=== PATIENT | female | born 1965 | race Caucasian/White ===

== ENCOUNTER 2017-05-01 12:47 | Inpatient (IN) ==
--- NOTE | 2017-05-01 13:18 | Emergency Department Note ---
Disposition Clinical Impression: Depression, Acute anxiety Disposition: Admitted As Inpatient Condition: Good Psych HPI - General Chief Complaint: ED Psychiatric Symptoms Stated Complaint: depression Time Seen by Provider: 05/01/17 12:57 Source: patient Mode of arrival: ambulatory Limitations: no limitations Nursing Notes Reviewed: Yes Vital Signs Reviewed: Yes - History of Present Illness HPI Narrative: Patient is a 51 y/o woman with a long-standing history of depression, anxiety, insomnia, and PTSD since her early 20's. She reports to the ED today because she feels "hopeless and lost, and does not know what else to do". She states that her current medications have been changed numerous times in the last two years and abruptly stopped taking all medications one year ago that resulted in a voluntary psychiatric hospitalization. Today she is tearful and visibly upset at her current situation. She is single and does not have any children. When asked, she did not admit to any other medical diagnoses or health problems. She does not currently have suicidal or homicidal ideation, has never had suicidal or homicidal ideation in the past, and has never had any attempts. She is currently taking her medications as prescribed and is seeing a psychiatrist for medical management. When asked about hospitalization, she seemed concerned with the social stigma and "what people would think". - Related Data Home Medications Medication Instructions Recorded Confirmed Estradiol [Estrace] 1 mg PO DAILY #0 09/17/15 05/01/17 Polyethylene Glycol 3350 [MiraLAX] 34 gm PO HS 09/22/15 05/01/17 ALPRAZolam [Xanax 1 MG Tablet] 1 mg PO DAILY PRN 05/01/17 05/01/17 Desvenlafaxine Succinate [Pristiq 50 mg PO QAM 05/01/17 05/01/17 ER] Eszopiclone [Lunesta] 3 mg PO HS 05/01/17 05/01/17 Ibuprofen [Ibuprofen] 800 mg PO Q8H PRN 05/01/17 05/01/17 Lubiprostone [Amitiza] 24 mcg PO BID 05/01/17 05/01/17 Progesterone,Micronized 100 mg PO DAILY 05/01/17 05/01/17 [Progesterone] Quetiapine Fumarate [Seroquel] 400 mg PO HS 05/01/17 05/01/17 Allergies Allergy/AdvReac Type Severity Reaction Status Date / Time indomethacin AdvReac Nausea Verified 05/01/17 12:54 Review of Systems: CONSTITUTIONAL: No weight loss, fever, chills, weakness or fatigue. HEENT: Eyes: No visual changes. Ears, Nose, Throat: No hearing loss, difficulty talking or unable to swallow. SKIN: No rash or itching. CARDIOVASCULAR: No chest pain, chest pressure or chest discomfort. No palpitations or edema. RESPIRATORY: No shortness of breath, cough or sputum. GASTROINTESTINAL: No anorexia, nausea, vomiting or diarrhea. No abdominal pain or blood. GENITOURINARY: No burning on urination or hematuria. NEUROLOGICAL: No headache, dizziness, syncope, paralysis, ataxia, numbness or tingling in the extremities. No change in bowel or bladder control. MUSCULOSKELETAL: No muscle pain, back pain, joint pain or stiffness. Psych: Depression All systems ED: reviewed and negative except as stated. Past Medical History - Past Medical History Medical history: Reports: kidney stones Surgical history: Reports: other Psychiatric history: Reports: anxiety, depression, PTSD - Social History Smoking Status: Never smoker Smokeless Tobacco Status: Yes Alcohol use: Reports: none Drug use: Reports: none, unknown Physical Exam General appearance: Patient visibly upset and crying Eyes: anicteric sclerae, moist conjunctivae; PERRL HENT: Atraumatic; oropharynx clear with moist mucous membranes and no mucosal ulcerations Neck: Normal inspection; Trachea midline; FROM, supple Lungs: CTA, with normal respiratory effort and no intercostal retractions CV: RRR, no MRGs Abdomen: Soft, non-tender; no rebound or gaurding Extremities: No peripheral edema or extremity lymphadenopathy Skin: Normal temperature; no rash, ulcers or lesions Psych: Appropriate mood and affect Neuro: alert and oriented to person, place and time - General Limitations: no limitations General appearance: alert, in no apparent distress, other Course - Reevaluation(s) Reevaluation #1: Patient does not have any suicidal ideation at this time. She does have very severe depression. Patient was offered multiple options but she would like to speak with the psychiatry team. 1[facility] medical clearance labs have been drawn and called be placed to 1A. Reevaluation #2: Patient admitted to 1A. Vital Signs Temperature 97.9 F 05/01/17 12:50 Pulse Rate 96 05/01/17 12:50 Respiratory Rate 18 05/01/17 12:50 Blood Pressure 130/83 05/01/17 12:50 O2 Sat by Pulse Oximetry 96 05/01/17 12:50 Temperature 97.4 F L 05/01/17 17:27 Pulse Rate 79 05/01/17 17:27 Respiratory Rate 16 05/01/17 17:27 Blood Pressure 133/87 05/01/17 17:27 O2 Sat by Pulse Oximetry 96 05/01/17 12:50 Oxygen Delivery Oxygen Delivery Room Air Psych - Lab Data Result diagrams: 05/01/17 13:39 05/01/17 13:39 Lab Results 05/01/17 05/01/17 05/01/17 Range/Units 13:39 13:39 15:03 WBC 10.6 (4.3-11.1) K/mcL RBC 4.63 (3.82-4.97) M/mcL Hgb 13.9 (11.5-15.4) g/dL Hct 41.7 (35.3-44.9) % MCV 90.1 (83.0-100.0) fL MCH 30.0 (28.0-33.3) pg MCHC 33.3 (31.6-35.5) g/dL RDW 11.9 (11.5-14.5) % Plt Count 279 (140-400) K/mcL MPV 9.2 L (9.4-12.4) fL Immature Gran % 0.2 (0-4) % Seg Neutrophils % 76.1 % Lymphocytes % 14.9 % Monocytes % 8.3 % Eosinophils % 0.2 % Basophils % 0.3 % Neutrophils # 8.0 (1.6-8.9) K/mcL Lymphocytes # 1.6 (0.6-4.6) K/mcL Monocytes # 0.9 (0.0-1.3) K/mcL Eosinophils # 0.0 (0.0-0.6) K/mcL Basophils # 0.0 (0.0-0.2) K/mcL Sodium 140 (136-145) mEq/L Potassium 4.2 (3.5-4.5) mEq/L Chloride 105 (98-109) mEq/L Carbon Dioxide 28 (19-29) mEq/L BUN 12 (7-20) mg/dL Creatinine 0.99 (0.57-1.11) mg/dL Est GFR ( Amer) > 60 (> 60) Est GFR (Non-Af Amer) 59 L (> 60) BUN/Creatinine Ratio 12 (6-26) Glucose 111 H (70-99) mg/dL Calculated Osmolality 290 (280-300) Calcium 9.9 (8.6-10.8) mg/dL Urine Color Yellow (Yellow) Urine Clarity Cloudy A (Clear) Urine pH 7.0 (5.0-8.0) pH Units Ur Specific [place] 1.016 (1.010-1.025) Urine Protein Negative (Neg-Trace) mg/dL Urine Glucose (UA) Normal (Normal) mg/dL Urine Ketones Negative (Negative) mg/dL Urine Blood Trace H (Negative) Urine Nitrite Negative (Negative) Urine Bilirubin Negative (Negative) Urine Urobilinogen Normal (Normal) mg/dL Ur Leukocyte Esterase Negative (Negative) Urine Microscopic RBC 0-3 (0-3) per hpf Urine Microscopic WBC 3-5 H (0-3) per hpf Ur Squamous Epith Cells Many H (None-Few) per lpf Urine Bacteria Few (None-Few) per hpf Hyaline Casts None Seen (None-Few) per lpf Salicylates < 5.0 L (15-30) mg/dL Urine Opiates Screen (Cjtwha=511) ng/mL Acetaminophen < 1.0 L (10-30) mcg/mL Ur Barbiturates Screen (Fqklat=607) ng/mL Ur Phencyclidine Scrn (Cutoff=25) ng/mL Ur Amphetamines Screen (Oigyew=7604) ng/mL U Benzodiazepines Scrn (Phrpgg=054) ng/mL Urine Cocaine Screen (Cutoff= 300) ng/mL U Marijuana (THC) Screen (Cutoff = 50) ng/mL Ethyl Alcohol < 10 (0-10) mg/dL 05/01/17 Range/Units 15:03 WBC (4.3-11.1) K/mcL RBC (3.82-4.97) M/mcL Hgb (11.5-15.4) g/dL Hct (35.3-44.9) % MCV (83.0-100.0) fL MCH (28.0-33.3) pg MCHC (31.6-35.5) g/dL RDW (11.5-14.5) % Plt Count (140-400) K/mcL MPV (9.4-12.4) fL Immature Gran % (0-4) % Seg Neutrophils % % Lymphocytes % % Monocytes % % Eosinophils % % Basophils % % Neutrophils # (1.6-8.9) K/mcL Lymphocytes # (0.6-4.6) K/mcL Monocytes # (0.0-1.3) K/mcL Eosinophils # (0.0-0.6) K/mcL Basophils # (0.0-0.2) K/mcL Sodium (136-145) mEq/L Potassium (3.5-4.5) mEq/L Chloride (98-109) mEq/L Carbon Dioxide (19-29) mEq/L BUN (7-20) mg/dL Creatinine (0.57-1.11) mg/dL Est GFR ( Amer) (> 60) Est GFR (Non-Af Amer) (> 60) BUN/Creatinine Ratio (6-26) Glucose (70-99) mg/dL Calculated Osmolality (280-300) Calcium (8.6-10.8) mg/dL Urine Color (Yellow) Urine Clarity (Clear) Urine pH (5.0-8.0) pH Units Ur Specific [place] (1.010-1.025) Urine Protein (Neg-Trace) mg/dL Urine Glucose (UA) (Normal) mg/dL Urine Ketones (Negative) mg/dL Urine Blood (Negative) Urine Nitrite (Negative) Urine Bilirubin (Negative) Urine Urobilinogen (Normal) mg/dL Ur Leukocyte Esterase (Negative) Urine Microscopic RBC (0-3) per hpf Urine Microscopic WBC (0-3) per hpf Ur Squamous Epith Cells (None-Few) per lpf Urine Bacteria (None-Few) per hpf Hyaline Casts (None-Few) per lpf Salicylates (15-30) mg/dL Urine Opiates Screen Negative (Ykergg=161) ng/mL Acetaminophen (10-30) mcg/mL Ur Barbiturates Screen Negative (Hxgova=096) ng/mL Ur Phencyclidine Scrn Negative (Cutoff=25) ng/mL Ur Amphetamines Screen Negative (Nusehc=9091) ng/mL U Benzodiazepines Scrn Positive H (Opgekz=872) ng/mL Urine Cocaine Screen Negative (Cutoff= 300) ng/mL U Marijuana (THC) Screen Negative (Cutoff = 50) ng/mL Ethyl Alcohol (0-10) mg/dL Psychiatric Medical Clearance - Medical Clearance Checklist Medical History: No Social History Section defined Current Vitals: Last Vital Signs Temp 97.4 F L 05/01/17 17:27 Pulse 79 05/01/17 17:27 Resp 16 05/01/17 17:27 BP 133/87 05/01/17 17:27 Pulse Ox 96 05/01/17 12:50 Psychiatric Lab Panel: Drug Levels and Toxicity 05/01/17 05/01/17 13:39 15:03 Urine Opiates Screen Negative Acetaminophen < 1.0 L Ur Barbiturates Screen Negative Ur Phencyclidine Scrn Negative Ur Amphetamines Screen Negative U Benzodiazepines Scrn Positive H Urine Cocaine Screen Negative U Marijuana (THC) Screen Negative Ethyl Alcohol < 10 Abnormal Labs: Abnormal lab results MPV 9.2 fL (9.4-12.4) L 05/01/17 13:39 Est GFR (Non-Af Amer) 59 (> 60) L 05/01/17 13:39 Glucose 111 mg/dL (70-99) H 05/01/17 13:39 Urine Clarity Cloudy (Clear) A 05/01/17 15:03 Urine Blood Trace (Negative) H 05/01/17 15:03 Urine Microscopic WBC 3-5 per hpf (0-3) H 05/01/17 15:03 Ur Squamous Epith Cells Many per lpf (None-Few) H 05/01/17 15:03 Salicylates < 5.0 mg/dL (15-30) L 05/01/17 13:39 Acetaminophen < 1.0 mcg/mL (10-30) L 05/01/17 13:39 U Benzodiazepines Scrn Positive ng/mL (Ianjfn=306) H 05/01/17 15:03 Statement of Medical Clearance: I have evaluated the patient, reviewed diagnostic information, and certify that the patient's medical condition is sufficiently stable that transfer to the psychiatric unit does not pose a significant risk of deterioration. Attestation Statement - Attestation Attestation: I, Savage Thomason, examined this patient and my medical decision-making was reviewed with the SENIOR FINANCE MANAGER/PA/Advanced Practice Nurse/Resident Physician. I agree with the documented findings, disposition and treatment plan as described except to the extent set forth below. 51-year-old female presents with concerns of depression. Pt denies SI/HI however she is very tearful during the exam. Pt sees the [facility] counseling center who recommended she be evaluated in the ED and likely admitted. Pt reports a significant lack of energy and has difficulty completing her activities of daily living. No focal neurologic deficits on exam. Pt seen by 1A after medical clearance. Pt will be admitted inpatient for further care and evaluation.
[2017-05-01 13:53] LABS: Basophils % 0.3 %; Eosinophils % 0.2 %; Hematocrit 41.7 % (35.3-44.9); Hemoglobin 13.9 g/dL (11.5-15.4); Immature Granulocytes % 0.2 % (0-4); Lymphocytes # 1.6 K/mcL (0.6-4.6); Lymphocytes % 14.9 %; Mean Corpuscular HGB Conc 33.3 g/dL (31.6-35.5); Mean Corpuscular Volume 90.1 fL (83.0-100.0); Mean Platelet Volume 9.2 fL (9.4-12.4); Monocytes # 0.9 K/mcL (0.0-1.3); Monocytes % 8.3 %; Platelet Count 279 K/mcL (140-400); Red Blood Count 4.63 M/mcL (3.82-4.97); Red Cell Distribution Width 11.9 % (11.5-14.5); Segmented Neutrophils % 76.1 %
[2017-05-01 14:13] LABS: Acetaminophen < 1.0 mcg/mL (10-30); BUN/Creatinine Ratio 12 (6-26); Blood Urea Nitrogen 12 mg/dL (7-20); Calcium 9.9 mg/dL (8.6-10.8); Carbon Dioxide 28 mEq/L (19-29); Chloride 105 mEq/L (98-109); Ethanol < 10 mg/dL (0-10); Glucose 111 mg/dL (70-99); Osmolality,Calculated 290 (280-300); Potassium 4.2 mEq/L (3.5-4.5); Salicylate < 5.0 mg/dL (15-30); Sodium 140 mEq/L (136-145); eGFR For African Americans > 60 (> 60); eGFR For Non-African Americans 59 (> 60)
[2017-05-01 15:28] LABS: Bilirubin,Urine Negative (Negative); Blood,Urine Trace (Negative); Clarity,Urine Cloudy (Clear); Color,Urine Yellow (Yellow); Glucose,Urine (UA) Normal (Normal); Ketones,Urine Negative (Negative); Leukocyte Esterase,Urine Negative (Negative); Nitrite,Urine Negative (Negative); Protein,Urine Negative (Neg-Trace); Specific Gravity,Urine 1.016 (1.010-1.025); Urobilinogen,Urine Normal (Normal)
[2017-05-01 15:33] LABS: Bacteria,Urine Few per hpf (None-Few); Hyaline Casts,Urine None Seen per lpf (None-Few); RBC,Urine 0-3 per hpf (0-3); Squamous Epithelial Cell,Urine Many per lpf (None-Few)
[2017-05-01 16:09] LABS: Amphetamine Screen,Urine Negative ng/mL (Cutoff=1000); Barbiturate Screen,Urine Negative ng/mL (Cutoff=200); Benzodiazepines Screen,Urine Positive ng/mL (Cutoff=200); Cannabinoid Screen,Urine Negative ng/mL (Cutoff = 50); Cocaine Screen,Urine Negative ng/mL (Cutoff= 300); Opiate Screen,Urine Negative ng/mL (Cutoff=300); Phencyclidine Screen,Urine Negative ng/mL (Cutoff=25)
[2017-05-01] MEDS ORDERED: ALPRAZolam 1 MG TABLET PO PRN (17:21)
[2017-05-01] MEDS ORDERED: *HR* LORazepam 2 MG/ML VIAL IM PRN (17:22)
[2017-05-01] MEDS ORDERED: MOM Conc 10 ML UD.LIQ PO PRN (17:22)
[2017-05-01] MEDS ORDERED: Haloperidol Lactate 5 MG/ML VIAL IM PRN (17:22)
[2017-05-01] MEDS ORDERED: *HR* LORazepam 1 MG TABLET PO PRN (17:22)
[2017-05-01] MEDS ORDERED: Mag Hydrox/Al Hydrox/Simeth 30 ML UDC PO PRN (17:22)
[2017-05-01] MEDS: Ibuprofen 800 MG TABLET PO PRN (19:30)
[2017-05-01] MEDS ORDERED: Sennosides 8.6 MG TABLET PO PRN (19:59)
[2017-05-01] MEDS: (Lubiprostone [Amitiza] 24 MCG) PO SCH (21:24)
[2017-05-02] MEDS: Ibuprofen 800 MG TABLET PO PRN ×2 (05:34→13:21)
[2017-05-02] MEDS: Venlafaxine XR (24 HR) 150 MG CAP.ER.24H PO SCH (08:26)
[2017-05-02] MEDS: (Desvenlafaxine Succinate [Pristiq] 50 MG) PO SCH (08:30)
[2017-05-02] MEDS: (Lubiprostone [Amitiza] 24 MCG) PO SCH ×2 (08:30→21:00)
--- NOTE | 2017-05-02 14:35 | Psychiatry History & Physical ---
Date of Encounter: 05/02/17 Time of Encounter: 14:15 History of Present Illness Patient Stated Chief Complaint: i came here to see Dr Jones to get meication , i think its harmonal. Medicare Admission Attestation: For traditional Medicare patients the provided hospital inpatient services are reasonable and necessary and in the case of services not specified as inpatient -only under 42 CFR 419.22 (n), that they are appropriately provided as inpatient services in accordance 42 CFR 412.3. For Critical Access Hospital the patient may reasonably be expected to be discharged or transferred to a hospital within 96 hours after admission to the Critical Access Hospital. History of Present Illness: Ms. Prasad is a 51 year old SW female with long history of depression , anxiety , insomnia and PTSD came to ER stating feeling hopeless and lost and is isolative , not doing things used to do , lack of motivation, sleep is not good ,high anxiety , increasing depression , she denies suicidal ideations and no psychosis , denies salvador. she is in treatment for 20 tears now, she has tried several antidepressant and antianxiety meds, she has not shown much improvement, she feels seroquel 400 was helping her sleep and some help with anxiety and pristiq helped some but still depressed and lack of motivation. she at present not suicidal but still anhedonia, lack of motivation and not good sleep. she is single lives by her self and no children , she has HS education and started working PT. denies any drug/alcohol/cig. 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.) Current living situation: Home - Independent Activity Level: Independent ambulation Recent Out of Country Travel Within the Last 8 Weeks: No Exposure or Possible Exposure to Illness During Travel: No - Family History Grandmother Hx Family Cancer: Yes (colon cancer) Mother Living Status: Still Living Hx Family Cardiac Disorders: Yes (HTN) Father Living Status: Hx Family Cardiac Disorders: Yes (heart disease) Medications & Allergies Estradiol [Estrace] 1 mg PO DAILY #0 09/17/15 [History] Polyethylene Glycol 3350 [MiraLAX] 34 gm PO HS 09/22/15 [History] ALPRAZolam [Xanax 1 MG Tablet] 1 mg PO DAILY PRN 05/01/17 [History] Desvenlafaxine Succinate [Pristiq ER] 50 mg PO QAM 05/01/17 [History] Eszopiclone [Lunesta] 3 mg PO HS 05/01/17 [History] Ibuprofen [Ibuprofen] 800 mg PO Q8H PRN 05/01/17 [History] Lubiprostone [Amitiza] 24 mcg PO BID 05/01/17 [History] Progesterone,Micronized [Progesterone] 100 mg PO DAILY 05/01/17 [History] Quetiapine Fumarate [Seroquel] 400 mg PO HS 05/01/17 [History] Allergies indomethacin Adverse Reaction (Verified 05/01/17 12:54) Nausea Review of Systems Constitutional: Denies: fever, chills, weakness, weight change Eyes: Denies: eye pain, vision change Ears, Nose, Throat: Denies: ear pain, throat pain, dental pain, hearing loss, congestion Cardiovascular: Denies: chest pain, palpitations, dyspnea on exertion Respiratory: Denies: cough, dyspnea, wheezes Gastrointestinal: Denies: abdominal pain, nausea, vomiting, diarrhea, constipation Genitourinary male: Denies: urgency, dysuria, frequency, genital lesions Genitourinary female: Denies: urgency, dysuria, frequency, abnormal menses, dyspareunia Musculoskeletal: Denies: joint swelling, joint pain Integumentary: Denies: rash, lesions, pruritus Neurological: Denies: headache, weakness, numbness, memory loss Psychiatric: Reports: depression, anxiety, abnormal sleep pattern, hopelessness , panic attacks Endocrine: Denies: fatigue, heat or cold intolerance Hematologic/Lymphatic: Denies: easy bruising, lymphadenopathy Allergic/Immunologic: Denies: urticaria, itchy eyes Mental Status Exam Patient orientation: Yes Person, Yes Time, Yes Place Level of alertness: Alert Patient appearance: Appropriate Behavior: cooperative, anxious Psychomotor activity: Slowed Eye contact: Maintains Eye Contact Mood description: Depressed, Anxious Affect description: congruent with mood Speech pattern: Normal rate Speech volume: Normal Thought process: Intact Thought content: Yes Preoccupation Attention span: Capable of Sustained Attention Memory description: Grossly Intact Patient reliability: Reliable Historian Intelligence estimate: Average Judgment: Fair Insight: Full Exam - HEENT Head exam IM: Present: atraumatic, normal inspection, normocephalic Eye exam IM: Present: normal appearance ENT exam IM: Present: normal exam - Neurological Neurological exam IM: Present: CN II-XII intact - Skin Skin exam IM: Present: dry, warm Results - Vital Signs Vital signs: Temp Pulse Resp BP Pulse Ox 97.7 F 91 16 121/77 96 05/02/17 08:25 05/02/17 08:25 05/02/17 08:25 05/02/17 08:25 05/01/17 12:50 - Labs Labs: Laboratory Last Values WBC 10.6 K/mcL (4.3-11.1) 05/01/17 13:39 RBC 4.63 M/mcL (3.82-4.97) 05/01/17 13:39 Hgb 13.9 g/dL (11.5-15.4) 05/01/17 13:39 Hct 41.7 % (35.3-44.9) 05/01/17 13:39 MCV 90.1 fL (83.0-100.0) 05/01/17 13:39 MCH 30.0 pg (28.0-33.3) 05/01/17 13:39 MCHC 33.3 g/dL (31.6-35.5) 05/01/17 13:39 RDW 11.9 % (11.5-14.5) 05/01/17 13:39 Plt Count 279 K/mcL (140-400) 05/01/17 13:39 MPV 9.2 fL (9.4-12.4) L 05/01/17 13:39 Immature Gran % 0.2 % (0-4) 05/01/17 13:39 Seg Neutrophils % 76.1 % 05/01/17 13:39 Lymphocytes % 14.9 % 05/01/17 13:39 Monocytes % 8.3 % 05/01/17 13:39 Eosinophils % 0.2 % 05/01/17 13:39 Basophils % 0.3 % 05/01/17 13:39 Neutrophils # 8.0 K/mcL (1.6-8.9) 05/01/17 13:39 Lymphocytes # 1.6 K/mcL (0.6-4.6) 05/01/17 13:39 Monocytes # 0.9 K/mcL (0.0-1.3) 05/01/17 13:39 Eosinophils # 0.0 K/mcL (0.0-0.6) 05/01/17 13:39 Basophils # 0.0 K/mcL (0.0-0.2) 05/01/17 13:39 Sodium 140 mEq/L (136-145) 05/01/17 13:39 Potassium 4.2 mEq/L (3.5-4.5) 05/01/17 13:39 Chloride 105 mEq/L (98-109) 05/01/17 13:39 Carbon Dioxide 28 mEq/L (19-29) 05/01/17 13:39 BUN 12 mg/dL (7-20) 05/01/17 13:39 Creatinine 0.99 mg/dL (0.57-1.11) 05/01/17 13:39 Est GFR ( Amer) > 60 (> 60) 05/01/17 13:39 Est GFR (Non-Af Amer) 59 (> 60) L 05/01/17 13:39 BUN/Creatinine Ratio 12 (6-26) 05/01/17 13:39 Glucose 111 mg/dL (70-99) H 05/01/17 13:39 Calculated Osmolality 290 (280-300) 05/01/17 13:39 Calcium 9.9 mg/dL (8.6-10.8) 05/01/17 13:39 Urine Color Yellow (Yellow) 05/01/17 15:03 Urine Clarity Cloudy (Clear) A 05/01/17 15:03 Urine pH 7.0 pH Units (5.0-8.0) 05/01/17 15:03 Ur Specific [place] 1.016 (1.010-1.025) 05/01/17 15:03 Urine Protein Negative mg/dL (Neg-Trace) 05/01/17 15:03 Urine Glucose (UA) Normal mg/dL (Normal) 05/01/17 15:03 Urine Ketones Negative mg/dL (Negative) 05/01/17 15:03 Urine Blood Trace (Negative) H 05/01/17 15:03 Urine Nitrite Negative (Negative) 05/01/17 15:03 Urine Bilirubin Negative (Negative) 05/01/17 15:03 Urine Urobilinogen Normal mg/dL (Normal) 05/01/17 15:03 Ur Leukocyte Esterase Negative (Negative) 05/01/17 15:03 Urine Microscopic RBC 0-3 per hpf (0-3) 05/01/17 15:03 Urine Microscopic WBC 3-5 per hpf (0-3) H 05/01/17 15:03 Ur Squamous Epith Cells Many per lpf (None-Few) H 05/01/17 15:03 Urine Bacteria Few per hpf (None-Few) 05/01/17 15:03 Hyaline Casts None Seen per lpf (None-Few) 05/01/17 15:03 Salicylates < 5.0 mg/dL (15-30) L 05/01/17 13:39 Urine Opiates Screen Negative ng/mL (Telwet=662) 05/01/17 15:03 Acetaminophen < 1.0 mcg/mL (10-30) L 05/01/17 13:39 Ur Barbiturates Screen Negative ng/mL (Orbxav=731) 05/01/17 15:03 Ur Phencyclidine Scrn Negative ng/mL (Cutoff=25) 05/01/17 15:03 Ur Amphetamines Screen Negative ng/mL (Kiaaty=9517) 05/01/17 15:03 U Benzodiazepines Scrn Positive ng/mL (Ztvamt=520) H 05/01/17 15:03 Urine Cocaine Screen Negative ng/mL (Cutoff= 300) 05/01/17 15:03 U Marijuana (THC) Screen Negative ng/mL (Cutoff = 50) 05/01/17 15:03 Ethyl Alcohol < 10 mg/dL (0-10) 05/01/17 13:39 Assessment and Plan (1) Major depress dis, severe Current visit: Yes Status: Acute Plan: Admit inpatient for safety and stabilization, Close observation, Suicide Precautions per unit protocol, Encourage participation in unit milieu, Group Therapy, Monitor sleep, Monitor appetite, Family/Supportive other meeting Risks, benefits, side effects, alternatives discussed w/pt: Yes Patient agreeable to treatment: Yes Plans for Post Hospital Care: Home (2) PTSD (post-traumatic stress disorder) Current visit: Yes Status: Chronic Plan: Admit inpatient for safety and stabilization, Close observation, Suicide Precautions per unit protocol, Encourage participation in unit milieu, Group Therapy, Monitor sleep, Monitor appetite, Family/Supportive other meeting Risks, benefits, side effects, alternatives discussed w/pt: Yes Patient agreeable to treatment: Yes Plans for Post Hospital Care: Home (3) Acute anxiety Current visit: Yes Status: Acute Plan: Admit inpatient for safety and stabilization, Group Therapy, Monitor sleep Risks, benefits, side effects, alternatives discussed w/pt: Yes Patient agreeable to treatment: Yes Plans for Post Hospital Care: Home
[2017-05-02] MEDS: BuPROPion XL (24 HR) 150 MG TABLET PO SCH (16:28)
[2017-05-02] MEDS: traZODone 50 MG TABLET PO PRN (20:58)
[2017-05-02] MEDS: ALPRAZolam 1 MG TABLET PO PRN (20:58)
[2017-05-03] MEDS ORDERED: BuPROPion SR (12 HR) 150 MG TABLET PO SCH (09:00)
[2017-05-03] MEDS: BuPROPion XL (24 HR) 150 MG TABLET PO SCH (09:26)
[2017-05-03] MEDS: Venlafaxine XR (24 HR) 150 MG CAP.ER.24H PO SCH (09:26)
[2017-05-03] MEDS: Ibuprofen 800 MG TABLET PO PRN (09:28)
[2017-05-03] MEDS: (Desvenlafaxine Succinate [Pristiq] 50 MG) PO SCH (09:35)
[2017-05-03] MEDS: (Lubiprostone [Amitiza] 24 MCG) PO SCH ×2 (09:35→21:17)
--- NOTE | 2017-05-03 11:21 | Psychiatry Progress Note ---
Date of Encounter: 05/03/17 Time of Encounter: 11:01 Subjective Interval history: Patient seen today , case d/w treatment team. patient is showing improvement in her depression , her energy level is same but no side effects with medications. she slept well with trazodone. and happy that slept as has problem with sleep always. Review of Systems Psychiatric: Reports: depression, anxiety, panic attacks Objective: Exam Patient orientation: Yes Person, Yes Time, Yes Place Level of alertness: Alert Patient appearance: Appropriate Behavior: anxious Psychomotor activity: Normal Eye contact: Maintains Eye Contact Mood description: Anxious Affect description: congruent with mood Speech pattern: Normal rate, Normal rhythm, Normal tone Speech volume: Normal Thought process: Intact Thought content: Yes Intact, Yes Guilt Judgment: Fair Insight: Full Results - Vital Signs Vital Signs: Temp Pulse Resp BP Pulse Ox 98.2 F 106 14 109/75 96 05/03/17 09:00 05/03/17 09:00 05/03/17 09:00 05/03/17 09:00 05/01/17 12:50 Assessment and Plan (1) Major depress dis, severe Current visit: Yes Status: Acute Risks, benefits, side effects, alternatives discussed w/pt: Yes Patient agreeable to treatment: Yes (2) PTSD (post-traumatic stress disorder) Current visit: Yes Status: Chronic Risks, benefits, side effects, alternatives discussed w/pt: Yes Patient agreeable to treatment: Yes (3) Acute anxiety Current visit: Yes Status: Acute Risks, benefits, side effects, alternatives discussed w/pt: Yes Patient agreeable to treatment: Yes Consult Discharge Plan - Plan Referrals: [facility] [Outside] - 06/22/17 11:20 am (The above appointment is with Dr. Jones for outpatient psychiatric assessment and medication management services. Please arrive 10 minutes early to all appointments to complete the check-in process. Please bring your insurance card (or [facility]) and photo ID. If you are unable to keep this appointment, 24 hour business notice of cancellation is expected. The above appointment(s) reflects first availability. You may contact the office regularly to check for cancellations that may allow you to be seen sooner. ) [facility] [Outside] - 05/09/17 11:00 am (The above appointment is with Dr. Zaragoza for mental health counseling. Dr. Zaragoza also has reserved an appointment for you on 05/16/2017 at 2:00pm. )
[2017-05-03] MEDS: ALPRAZolam 1 MG TABLET PO PRN (20:41)
[2017-05-03] MEDS: traZODone 50 MG TABLET PO PRN (20:41)
[2017-05-04] MEDS: Venlafaxine XR (24 HR) 150 MG CAP.ER.24H PO SCH (08:40)
[2017-05-04] MEDS: BuPROPion XL (24 HR) 150 MG TABLET PO SCH (08:40)
[2017-05-04] MEDS: (Lubiprostone [Amitiza] 24 MCG) PO SCH (08:42)
[2017-05-04] MEDS: (Desvenlafaxine Succinate [Pristiq] 50 MG) PO SCH (08:42)
--- NOTE | 2017-05-04 10:00 | Psychiatry Progress Note ---
Date of Encounter: 05/04/17 Time of Encounter: 09:40 Review of Systems Psychiatric: Reports: depression, anxiety, panic attacks Results - Vital Signs Vital Signs: Temp Pulse Resp BP Pulse Ox 98.0 F 88 16 125/91 96 05/03/17 20:03 05/03/17 20:03 05/03/17 20:03 05/03/17 20:03 05/01/17 12:50 Assessment and Plan (1) Major depress dis, severe Status: Acute Risks, benefits, side effects, alternatives discussed w/pt: Yes Patient agreeable to treatment: Yes (2) PTSD (post-traumatic stress disorder) Status: Chronic Risks, benefits, side effects, alternatives discussed w/pt: Yes Patient agreeable to treatment: Yes (3) Acute anxiety Status: Acute Risks, benefits, side effects, alternatives discussed w/pt: Yes Patient agreeable to treatment: Yes Consult Discharge Plan - Plan Instructions: Depression (DC), Anxiety (DC) Referrals: [facility] [Outside] - 05/09/17 11:00 am (The above appointment is with Dr. Jones for outpatient psychiatric assessment and medication management services. You also have another appointment with Dr. Jones scheduled for 06/22 at 11:20am. Please arrive 10 minutes early to all appointments to complete the check-in process. Please bring your insurance card ([facility]) and photo ID. If you are unable to keep this appointment, 24 hour business notice of cancellation is expected. The above appointment(s) reflects first availability. You may contact the office regularly to check for cancellations that may allow you to be seen sooner. ) [facility] [Outside] - 05/10/17 3:00 pm (The above appointment is with Dr. Zaragoza for mental health counseling. Dr. Zaragoza also has reserved an appointment for you on 05/16/2017 at 2:00pm. ) Prescriptions: BuPROPion XL (24 HR) [Wellbutrin Xl] 150 mg PO DAILY #7 Quetiapine Fumarate [Seroquel] 400 mg PO HS #10 traZODone [TraZODone] 50 mg PO HS PRN #7 tab PRN Reason: Insomnia Venlafaxine XR (24 HR) [Effexor Xr] 150 mg PO DAILY #7
--- NOTE | 2017-05-04 10:15 | Discharge Summary ---
Date of Encounter: 05/04/17 Time of Encounter: 09:40 Diagnosis - Discharge Diagnosis (1) Major depress dis, severe Status: Acute (2) PTSD (post-traumatic stress disorder) Status: Chronic (3) Acute anxiety Status: Acute Medications - Discharge Medications Prescriptions: BuPROPion XL (24 HR) [Wellbutrin Xl] 150 mg PO DAILY #7 Quetiapine Fumarate [Seroquel] 400 mg PO HS #10 traZODone [TraZODone] 50 mg PO HS PRN #7 tab PRN Reason: Insomnia Venlafaxine XR (24 HR) [Effexor Xr] 150 mg PO DAILY #7 Estradiol [Estrace] 1 mg PO DAILY #0 09/17/15 [History] Polyethylene Glycol 3350 [MiraLAX] 34 gm PO HS 09/22/15 [History] ALPRAZolam [Xanax 1 MG Tablet] 1 mg PO DAILY PRN 05/01/17 [History] Eszopiclone [Lunesta] 3 mg PO HS 05/01/17 [History] Lubiprostone [Amitiza] 24 mcg PO BID 05/01/17 [History] Progesterone,Micronized [Progesterone] 100 mg PO DAILY 05/01/17 [History] BuPROPion XL (24 HR) [Wellbutrin Xl] 150 mg PO DAILY #7 05/04/17 [Rx] Quetiapine Fumarate [Seroquel] 400 mg PO HS #10 05/04/17 [Rx] Venlafaxine XR (24 HR) [Effexor Xr] 150 mg PO DAILY #7 05/04/17 [Rx] traZODone [TraZODone] 50 mg PO HS PRN #7 tab 05/04/17 [Rx] Allergies indomethacin Adverse Reaction (Verified 05/01/17 12:54) Nausea Provider Date of admission: 05/03/17 08:03 Primary care physician: PCP NONE Assessment and Plan - Patient/Caregiver Discharge Instructions Activity: resume usual activities as tolerated Diet: regular diet - Follow up Plan Follow up with: [facility] [Outside] - 05/09/17 11:00 am (The above appointment is with Dr. Jones for outpatient psychiatric assessment and medication management services. You also have another appointment with Dr. Jones scheduled for 06/22 at 11:20am. Please arrive 10 minutes early to all appointments to complete the check-in process. Please [facility] card [facility]) and photo ID. If you are unable to keep this appointment, 24 hour business notice of cancellation is expected. The above appointment(s) reflects first availability. You may contact the office regularly to check for cancellations that may allow you to be seen sooner. ) [facility] [Outside] - 05/10/17 3:00 pm (The above appointment is with Dr. Zaragoza for mental health counseling. Dr. Zaragoza also has reserved an appointment for you on 05/16/2017 at 2:00pm. ) Overall status at discharge: Stable Disposition: Home, Self-Care Hospital Course Hospital course: Ms. Prasad is a 51 year old female who presented to ER after her counsellor asked her to be here. she was anxious, depressed, hopeless but no suicidal ideation. she wanted her meds evaluated as not helping her and she couldnot get in to her psychiatrist office early. at present med changes done, patient improved and feeling better. she is not suicidal, and has support. will continue counselling. Does patient wish to continue nicotine replacement upon disc: No (pt doesnot smoke) - Time Spent with Patient Total time spent providing and/or coordinating discharge services: Less than 30 minutes (patient stable) Quality - Multiple Antipsychotics Patient discharged on 2 or more antipsychotic medications: No Procedures - Procedures Procedures: Medication Management, Crisis Stabilization, Supportive Therapy, Group Therapy, Psychoeducational Therapy Mental Status Exam - Mental Status Exam Patient orientation: Yes Person, Yes Time, Yes Place Level of alertness: Alert Patient appearance: Appropriate Behavior: calm, cooperative Psychomotor activity: Normal Eye contact: Maintains Eye Contact Mood description: Euthymic/stable Affect description: congruent with mood Speech pattern: Normal rate Speech Volume: Normal Thought process: Intact Thought Content: Yes Intact Judgment: Good Insight: Full
[2017-05-04 10:41] VITALS: BP 117/83
== END 2017-05-04 11:35 | disposition home or self-care (01) | DRG 885 ==
LOC: EMEROO 12:47 → 1ANU 12:47
PROVIDERS: ADMIT Psychiatry & Neurology Psychiatry; ATTEND Psychiatry & Neurology Psychiatry